=== PATIENT | female | born 1960 | race Caucasian/White ===

== ENCOUNTER 2021-09-25 08:51 | Outpatient (CLI) | payer BC, MEDICARE | END 2021-09-25 08:52 | disposition home or self-care (01) | LOC: CSHWCC 08:51 | PROVIDERS: ATTEND Nurse Practitioner Family | DX: K94.10 Enterostomy complication, unspecified (principal) | CPT/HCPCS: 97139; G0463; 99212 ==

== ENCOUNTER 2021-12-04 09:52 | Outpatient (CLI) | payer MEDICARE | END 2021-12-04 09:53 | disposition home or self-care (01) | LOC: CSHWCC 09:52 | PROVIDERS: ATTEND Nurse Practitioner Family | DX: K94.00 Colostomy complication, unspecified (principal) | CPT/HCPCS: 99212; G0463 ==

== ENCOUNTER 2022-01-08 08:39 | Outpatient (CLI) | payer MEDICARE | END 2022-01-08 08:40 | disposition home or self-care (01) | LOC: CSHWCC 08:39 | PROVIDERS: ATTEND Nurse Practitioner Family | DX: K94.00 Colostomy complication, unspecified (principal) | CPT/HCPCS: 99212; G0463 ==

== ENCOUNTER 2024-09-08 08:07 | Outpatient (CLI) | payer MEDICARE | END 2024-09-08 08:08 | disposition home or self-care (01) | LOC: CSHWCC 08:07 | PROVIDERS: ATTEND Nurse Practitioner Family | DX: Z43.3 Encounter for attention to colostomy (principal); K74.60 Unspecified cirrhosis of liver; L24.B1 Irritant contact dermatitis related to digestive stoma or fistula | CPT/HCPCS: 99213; G0463 ==

== ENCOUNTER 2025-03-22 09:07 | Outpatient (CLI) | payer OTHER | END 2025-03-22 09:08 | disposition home or self-care (01) | LOC: CSHMAMMO 09:07 | PROVIDERS: ATTEND Internal Medicine Endocrinology, Diabetes & Metabolism | DX: M81.0 Age-related osteoporosis without current pathological fracture (principal) | CPT/HCPCS: 77080 ==

== ENCOUNTER 2025-07-21 08:42 | Outpatient (CLI) | payer MEDICARE | END 2025-07-21 08:43 | disposition home or self-care (01) | LOC: CSHWCC 08:42 | PROVIDERS: ATTEND Nurse Practitioner Family | DX: Z43.3 Encounter for attention to colostomy (principal); K74.60 Unspecified cirrhosis of liver; Z94.4 Liver transplant status | CPT/HCPCS: 99212; G0463 ==